=== PATIENT | female | born 1965 | race African-American/Black ===

== ENCOUNTER 2024-03-05 08:07 | Emergency (ER) | payer BC ==
[2024-03-05 08:39] VITALS: BP 153/116; PULSE 102; RESP 17; TEMP 98.4; BMI 34.9
[2024-03-05] MEDS ORDERED: IBUPROFEN 600 MG TABLET (FP) PO ONE (09:40)
[2024-03-05] MEDS: IBUPROFEN 600 MG TABLET (FP) PO ONE (09:41)
== END 2024-03-05 10:42 | disposition home or self-care (01) ==
LOC: JERFT 08:07
DX: M79.674 Pain in right toe(s) (principal); M10.9 Gout, unspecified
CPT/HCPCS: 73630-TC-RT-FY; 99283-25